=== PATIENT | female | born 1955 | race Caucasian/White ===

== ENCOUNTER → 2023-03-14 | Outpatient (CLI) | payer MEDICARE ==
[~2023-03-14] MED LIST: ACET325 PO; ACYC200 PO; Advil200 M1 PO; BENADRYL25 MG PO; BIEST TOP; IPRAOI; L-Lysine500 M1; MOME.1TC; PROG100; VITAMIN D5000 UNIT; [UNRECOGNIZED DRUG - OTHER]
[2023-03-15 11:05] LABS: Candida species (DNA Probe) Negative (NEGATIVE); G. vaginalis (DNA Probe) Negative (NEGATIVE); T. vaginalis (DNA Probe) Negative (NEGATIVE)
== END | disposition home or self-care (01) ==
LOC: LAB SHORT 16:39 → LAB 16:39
PROVIDERS: Obstetrics & Gynecology
DX: N76.0 Acute vaginitis (principal)
CPT/HCPCS: 87480; 87510; 87660